=== PATIENT | female | born 1995 | race African-American/Black ===

== ENCOUNTER 2021-02-21 07:00 | Inpatient (IN) | payer OTHER ==
[2021-02-21] MEDS ORDERED: OXYTOCIN 30 UNITS in 0.9% NS 30 UNIT/500 ML INFUS.BAG IVPB SCH (08:00)
[2021-02-21 09:57] VITALS: BMI 27.8
[2021-02-21] MEDS ORDERED: PCA PUMP NR ONE (11:19)
[2021-02-21] MEDS ORDERED: FENTANYL/BUPIVACAINE/NS/PF - PCEA - 50 ML DISP.SYRIN EP ONE (11:19)
[2021-02-21 11:29] LABS: BASO % 0.2 % (0-2.0); EOS % 1.4 % (0-4.5); HEMATOCRIT 38.5 % (32.4-45.2); HEMOGLOBIN 13.4 GM/dL (10.7-15.3); LYMPH % 18.9 % (8-40); MCH 35.1 pg (25.7-33.7); MCHC 34.8 g/dl (32.0-36.0); MEAN PLT VOLUME 9.9 fl (7.5-11.1); MONO % 9.4 % (3.8-10.2); NEUT % 70.1 % (42.8-82.8); PLATELET COUNT 194 K/MM3 (134-434); RBC 3.81 M/mm3 (3.60-5.2); RDW 12.5 % (11.6-15.6)
[2021-02-21] MEDS ORDERED: OXYTOCIN 20 UNITS in 0.9% NS 20 UNIT/1,000 ML INFUS.BAG IV ONE (11:30)
[2021-02-21 11:35] LABS: INR 1.03 (0.83-1.09); PROTHROMBIN TIME (PATIENT) 12.4 SEC (9.7-13.0)
[2021-02-21 11:36] LABS: PHENCYCLIDINE,URINE NEGATIVE ng/ml (CUTOFF=25); URINE BARBITURATES NEGATIVE ng/ml (CUTOFF=200); URINE BENZODIAZEPINES NEGATIVE ng/ml (CUTOFF=200)
[2021-02-21 11:37] LABS: METHADONE, UR NEGATIVE ng/ml (CUTOFF=300); OPIATES, URI NEGATIVE ng/ml (CUTOFF=300); URINE AMPHETAMINES NEGATIVE ng/ml (CUTOFF=500)
[2021-02-21 11:38] LABS: ACTIVATED PTT 25.2 SECONDS (25.2-36.5)
[2021-02-21 11:41] LABS: COCAINE, UR NEGATIVE ng/ml (CUTOFF=300)
[2021-02-21 11:49] LABS: CALCIUM 9.1 mg/dL (8.5-10.1)
[2021-02-21 11:50] LABS: BLOOD UREA NITROGEN 4.2 mg/dL (7-18)
[2021-02-21 11:53] LABS: CREATININE 0.7 mg/dL (0.55-1.3)
[2021-02-21] MEDS: ACETAMINOPHEN 325 MG TABLET (FP) PO PRN (12:00)
[2021-02-21] MEDS: IBUPROFEN 600 MG TABLET (FP) PO PRN (12:00)
[2021-02-21] MEDS ORDERED: ACETAMINOPHEN 325 MG TABLET (FP) ONE (12:14)
[2021-02-21] MEDS ORDERED: IBUPROFEN 600 MG TABLET (FP) PO ONE (12:14)
[2021-02-21] MEDS ORDERED: BENZOCAINE 28 GM HEMORRHOIDAL OINTMENT TP PRN (13:29)
[2021-02-21] MEDS ORDERED: WITCH HAZEL 50% (TUCKS) 40 PAD/JAR PAD TP PRN (13:29)
[2021-02-21] MEDS ORDERED: METHYLERGONOVINE MALEATE 0.2 MG/1 ML AMP IM PRN (13:29)
[2021-02-21] MEDS ORDERED: BENZOCAINE 20% 57 GM BOTTLE TP PRN (13:29)
[2021-02-21] MEDS ORDERED: BISACODYL 10 MG SUPP.RECT RC PRN (13:29)
[2021-02-21] MEDS ORDERED: DEXTROSE 5%-LACTATED RINGERS 1,000 ML IV SCH (13:30)
[2021-02-22] MEDS: ACETAMINOPHEN 325 MG TABLET (FP) PO PRN (06:03)
[2021-02-22] MEDS: IBUPROFEN 600 MG TABLET (FP) PO PRN (06:04)
[2021-02-22 08:51] LABS: BASO % 0.3 % (0-2.0); EOS % 1.9 % (0-4.5); HEMATOCRIT 36.5 % (32.4-45.2); HEMOGLOBIN 12.8 GM/dL (10.7-15.3); LYMPH % 8.7 % (8-40); MCH 35.4 pg (25.7-33.7); MCHC 35.1 g/dl (32.0-36.0); MEAN CELL VOLUME 100.8 fl (80-96); MEAN PLT VOLUME 9.8 fl (7.5-11.1); MONO % 7.8 % (3.8-10.2); NEUT % 81.3 % (42.8-82.8); PLATELET COUNT 181 K/MM3 (134-434); RBC 3.62 M/mm3 (3.60-5.2); RDW 12.5 % (11.6-15.6); WHITE BLOOD COUNT 12.2 K/mm3 (4.0-10.0)
[2021-02-22 15:18] VITALS: TEMP 98
[2021-02-22 16:03] VITALS: BP 112/80; PULSE 90
[2021-02-22] MEDS ORDERED: SENNOSIDES/DOCUSATE COMBO (SENNA PLUS) TABLET (UD) PO PRN (22:00)
== END 2021-02-22 16:00 | disposition home or self-care (01) | DRG 560 ==
LOC: JLDR 07:00 → J3W 13:28
PROVIDERS: ADMIT Specialist; ATTEND Specialist
PROC: 10E0XZZ Delivery of Products of Conception, External Approach (ICD-10-PCS; principal; 2021-02-21)
PROC: 10907ZC Drainage of Amniotic Fluid, Therapeutic from Products of Conception, Via Natural or Artificial Opening (ICD-10-PCS; 2021-02-21)
DX: O36.5930 Maternal care for other known or suspected poor fetal growth, third trimester, not applicable or unspecified (principal); Z3A.39 39 weeks gestation of pregnancy; Z37.0 Single live birth; O70.0 First degree perineal laceration during delivery
CPT/HCPCS: 36415; 59409; 80048; 80307; 81003; 85025; 85610; 85730; 86780; 86850; 86900; 86901; C9803; U0003; U0005

== ENCOUNTER 2021-12-12 04:16 | Day surgery (SDC) | payer OTHER ==
[2021-12-05 14:37] VITALS: BMI 26.4
[2021-12-12] MEDS ORDERED: PROPOFOL 20 ML ONE ×3 (10:41)
[2021-12-12] MEDS ORDERED: MIDAZOLAM HCL 2 MG/2 ML SINGLE DOSE VIAL ONE (10:41)
[2021-12-12] MEDS ORDERED: KETOROLAC TROMETHAMINE 30 MG/1 ML VIAL ONE (11:01)
[2021-12-12] MEDS ORDERED: IODINE/POTASSIUM IODIDE 5%/10% 14 ML BOTTLE NR ONE (11:10)
[2021-12-12] MEDS ORDERED: FERRIC SUBSULFATE 500 ML BOTTLE TP ONE (11:11)
[2021-12-12] MEDS ORDERED: IBUPROFEN 400 MG TABLET (FP) PO PRN (11:47)
[2021-12-12] MEDS ORDERED: ACETAMINOPHEN 325 MG TABLET (FP) PO PRN (11:47)
[2021-12-12 18:04] VITALS: BP 145/110; PULSE 112; TEMP 96.9
== END 2021-12-12 14:30 | disposition home or self-care (01) ==
LOC: JASU-SURG 04:16
PROVIDERS: ATTEND Specialist
PROC: 0UBC7ZX Excision of Cervix, Via Natural or Artificial Opening, Diagnostic (ICD-10-PCS; 2021-12-12)
PROC: 0UDB7ZX Extraction of Endometrium, Via Natural or Artificial Opening, Diagnostic (ICD-10-PCS; principal; 2021-12-12 10:00)
DX: N87.1 Moderate cervical dysplasia (principal)
CPT/HCPCS: 81025; 88305-TC; 88307-TC

== ENCOUNTER 2023-04-30 08:20 | Inpatient (IN) | payer OTHER ==
[2023-04-30 09:35] VITALS: BMI 29.2
[2023-04-30] MEDS ORDERED: ELECTROLYTE-148 SOLN 1,000 ML IV SCH (11:00)
[2023-04-30] MEDS ORDERED: OXYTOCIN 30 UNITS in 0.9% NS 30 UNIT/500 ML INFUS.BAG IVPB SCH (11:00)
[2023-04-30] MEDS ORDERED: OXYTOCIN 20 UNITS in 0.9% NS 20 UNIT/1,000 ML INFUS.BAG IV ONE (13:39)
[2023-04-30] MEDS ORDERED: BENZOCAINE 28 GM HEMORRHOIDAL OINTMENT TP PRN (15:23)
[2023-04-30] MEDS ORDERED: BISACODYL 10 MG SUPP.RECT RC PRN (15:23)
[2023-04-30] MEDS ORDERED: METHYLERGONOVINE MALEATE 0.2 MG/1 ML AMP IM PRN (15:23)
[2023-04-30] MEDS ORDERED: BENZOCAINE 20% 57 GM BOTTLE TP PRN (15:23)
[2023-04-30] MEDS ORDERED: ACETAMINOPHEN 325 MG TABLET (FP) PO PRN (15:23)
[2023-04-30] MEDS ORDERED: WITCH HAZEL 50% (TUCKS) 40 PAD/JAR PAD TP PRN (15:23)
[2023-04-30] MEDS ORDERED: OXYTOCIN 20 UNITS in 0.9% NS 20 UNIT/1,000 ML INFUS.BAG IV SCH (15:30)
[2023-04-30] MEDS: IBUPROFEN 600 MG TABLET (FP) PO PRN (20:11)
[2023-04-30] MEDS: oxyCODONE HCL 5 MG TABLET PO PRN (21:23)
[2023-04-30 23:37] VITALS: RESP 18
[2023-05-01] MEDS: oxyCODONE HCL 5 MG TABLET PO PRN (03:41)
[2023-05-01 07:15] LABS: BASO % 0.3 % (0-2.0); EOS % 0.5 % (0-4.5); HEMATOCRIT 39.6 % (32.4-45.2); LYMPH % 13.2 % (8-40); MCH 32.7 pg (25.7-33.7); MCHC 32.9 g/dl (32.0-36.0); MEAN CELL VOLUME 99.5 fl (80-96); MEAN PLT VOLUME 9.5 fl (7.5-11.1); MONO % 7.5 % (3.8-10.2); NEUT % 78.5 % (42.8-82.8); PLATELET COUNT 238 10^3/uL (134-434); RBC 3.99 M/mm3 (3.60-5.2); WHITE BLOOD COUNT 13.5 K/mm3 (4.0-10.0)
[2023-05-01] MEDS: IBUPROFEN 600 MG TABLET (FP) PO PRN ×2 (09:42→18:10)
[2023-05-01] MEDS ORDERED: SENNOSIDES/DOCUSATE COMBO (SENNA PLUS) TABLET (UD) PO PRN (22:00)
[2023-05-02] MEDS: oxyCODONE HCL 5 MG TABLET PO PRN ×2 (02:49→09:40)
[2023-05-02] MEDS: IBUPROFEN 600 MG TABLET (FP) PO PRN (08:30)
[2023-05-02 10:03] VITALS: BP 124/69; PULSE 77; TEMP 98.5
== END 2023-05-02 14:30 | disposition home or self-care (01) | DRG 560 ==
LOC: JLDR 08:20 → J3W 16:00
PROVIDERS: ADMIT Specialist; ATTEND Specialist
PROC: 10E0XZZ Delivery of Products of Conception, External Approach (ICD-10-PCS; principal; 2023-04-30)
DX: O80 Encounter for full-term uncomplicated delivery (principal); Z3A.39 39 weeks gestation of pregnancy; Z37.0 Single live birth
CPT/HCPCS: 36415; 80053; 85025; 85027; 85610; 85730; 86780; 86850; 86900; 86901; 87389; 87635